=== PATIENT | male | born 1970 | race Caucasian/White ===

== ENCOUNTER 2017-08-17 09:45 | Observation (INO) | payer BC, OTHER ==
[2017-09-03] MEDS ORDERED: LR 1,000 ML IV ONE (05:49)
[2017-09-03] MEDS ORDERED: ACETAMINOPHEN 500 MG TAB PO ONE (05:49)
[2017-09-03] MEDS ORDERED: ceFAZolin 2 GM/SWFI 2 GM/20 ML SYR IVP ONE (05:49)
[2017-09-03] MEDS ORDERED: LIDOCAINE 1% 2 ML INJ ID PRN (05:49)
[2017-09-03] MEDS ORDERED: GABAPENTIN 300 MG CAP PO ONE (05:49)
[2017-09-03] MEDS ORDERED: MIDAZOLAM 2 MG/2 ML VIAL IVP ONE (06:46)
--- NOTE | 2017-09-03 06:52 | PDANEPAE ---
ANE History of Present Illness 47 yo male with cervical DDD, B upper extremity numbness/some weakness for C5-7 ACDF. ANE Past Medical History - Cardiovascular History Hx Hypertension: No Hx Arrhythmias: No Hx Chest Pain: No Hx Coronary Artery / Peripheral Vascular Disease: No Hx CHF / Valvular Disease: No Hx Palpitations: No Cardiovascular History Comment: hypercholesterolemia - no off meds - Pulmonary History Hx COPD: No Hx Asthma/Reactive Airway Disease: No Hx Recent Upper Respiratory Infection: No Hx Oxygen in Use at Home: No Hx Sleep Apnea: Yes Sleep Apnea Screening Result - Last Documented: Positive Pulmonary History Comment: isabella positive- uses cpap- instructed pt to bring to hospital. recent bronchitis - Neurologic History Hx Cerebrovascular Accident: No Hx Seizures: No Hx Dementia: No Neurologic History Comment: numbness and tingling to bilateral hands - Endocrine History Hx Diabetes: No Hypothyroid: No Obesity: mild - Renal History Hx Renal Disorders: No - Liver History Hx Hepatic Disorders: No - Neurological & Psychiatric Hx Hx Neurological and Psychiatric Disorders: Yes Neurological / Psychiatric History Comment: depression/anxiety - Cancer History Hx Cancer: No - Congenital Disorder History Hx Congenital Disorders: No - GI History Hx Gastrointestinal Disorders: No - Other Health History Other Health History: none - Chronic Pain History Chronic Pain: Yes (neck and thoracic area) - Surgical History Prior Surgeries: hernia repair x4 ANE Review of Systems Review of systems is: negative Review of Systems: - Exercise capacity METS (RN): 4 METS ANE Patient History - Allergies Allergies/Adverse Reactions: No Known Allergies Allergy (Verified 07/21/17 11:40) - Home Medications Home Medications: ALPRAZolam [Alprazolam] 0.25 mg PO BID 09/02/17 [Last Taken 09/01/17 06:00] Allopurinol [Allopurinol 300 MG (RX)] 300 mg PO DAILY 09/02/17 [Last Taken 09/02 20:00] Cetirizine HCl [Zyrtec] 10 mg PO DAILY PRN 09/02/17 [Last Taken 09/02/17 07:00] Citalopram Hydrobromide [Citalopram HBr] 40 mg PO DAILY 09/02/17 [Last Taken 21:00] HYDROcodone BITARTRATE [Zohydro ER] 30 mg PO BID 09/02/17 [Last Taken 09/03/17 03:30] Hydrocodone/Acetaminophen [Hydrocodon-Acetaminophn 10325] 1 each PO 5XD PRN [Last Taken 09/03/17 03:30] - NPO status NPO Since - Liquids (Date): 09/02/17 NPO Since - Liquids (Time): 20:00 NPO Since - Solids (Date): 09/02/17 NPO Since - Solids (Time): 19:30 - Anes Hx Anes Hx: no prior problems - Smoking Hx Smoking Status: Never smoked Marijuana use: No - Alcohol Use Alcohol Use: Rarely - Family Anes Hx Family Anes Hx: neg - N/A Family Hx Anesthesia Complications: none ANE Labs/Vital Signs - Vital Signs Blood Pressure: 161/88 Heart Rate: 73 Respiratory Rate: 18 O2 Sat (%): 91 Height: 172.72 cm Weight: 102.058 kg ANE Physical Exam - Airway Neck exam: decreased ROM Mallampati Score: Class 3 Mouth exam: normal dental/mouth exam - Pulmonary Pulmonary: clear to auscultation - Cardiovascular Cardiovascular: regular rate and rhythym - ASA Status ASA Status: III ANE Anesthesia Plan Anesthesia Plan: general endotracheal anesthesia Lines/Monitors: additional IV
--- NOTE | 2017-09-03 06:53 | PDHPUP ---
History & Physical Update H&P update statement: This history and physical update is based on an assessment of the patient which was completed after admission or registration (within 24 hours), but prior to the surgery/procedure. H&P update: H&P reviewed & patient examined, no change in patient's condition since H&P completed (Consents signed and site marked. All questions answered.)
[2017-09-03] MEDS ORDERED: DEXMEDETOMIDINE HCL 400 MCG in NS 100 ML IV SCH (07:00)
[2017-09-03] MEDS ORDERED: PROPOFOL 200 MG/20 ML VIAL ONE ×2 (07:09→07:59)
[2017-09-03] MEDS ORDERED: LIDOCAINE 2% 5 ML SDV ONE (07:09)
[2017-09-03] MEDS ORDERED: ROCURONIUM 50 MG/5 ML VIAL ONE (07:09)
[2017-09-03] MEDS ORDERED: DEXAMETHASONE 4 MG/ML VIAL ONE (07:09)
[2017-09-03] MEDS ORDERED: THROMBIN (BOVINE) 20,000 UNIT VIAL TP ONE (07:14)
[2017-09-03] MEDS ORDERED: BACITRACIN 50,000 UNITS/10 ML SYR IRR ONE (07:15)
[2017-09-03] MEDS ORDERED: SURGIFLO MATRIX KIT WITH THROMBIN 8 ML TP ONE (07:17)
[2017-09-03] MEDS ORDERED: CHLORHEXIDINE GLUC HIBICLENS 118 ML BTL TP ONE (07:17)
[2017-09-03] MEDS ORDERED: DIAZEPAM 5 MG/ML 1 ML SYR ONE ×2 (08:01→10:03)
[2017-09-03] MEDS ORDERED: epHEDrine SULFATE 10 MG/ML SYR ONE (08:25)
[2017-09-03] MEDS ORDERED: ONDANSETRON 4 MG/2 ML VIAL ONE (09:22)
[2017-09-03] MEDS ORDERED: ALBUTEROL 3 ML DEYVIAL IH PRN (09:22)
[2017-09-03] MEDS ORDERED: NALOXONE HCL 0.4 MG/ML INJ IVP PRN (09:22)
[2017-09-03] MEDS ORDERED: LR 500 ML IV PRN (09:22)
[2017-09-03] MEDS ORDERED: ONDANSETRON 4 MG/2 ML VIAL IVP PRN (09:41)
[2017-09-03] MEDS ORDERED: BISACODYL 10 MG SUPP PR PRN (09:41)
[2017-09-03] MEDS ORDERED: ONDANSETRON DISINTEGRATING 4 MG TAB PO PRN (09:41)
[2017-09-03] MEDS ORDERED: LACTULOSE 20 GM/30 ML UDCUP PO PRN (09:41)
[2017-09-03] MEDS ORDERED: diphenhydrAMINE 25 MG CAP PO PRN (09:41)
[2017-09-03] MEDS ORDERED: MAGNESIUM HYDROXIDE 30 ML UDCUP PO PRN (09:41)
[2017-09-03] MEDS ORDERED: POLYETHYLENE GLYCOL 3350 17 GM PKT PO PRN (09:41)
[2017-09-03] MEDS ORDERED: NS W/ 20 KCl/L 1,000 ML IV SCH (09:45)
--- NOTE | 2017-09-03 09:46 | POSTANESTH ---
Post Anesthetic Evaluation Cardiovascular Status: Normal, Stable Respiratory Status: Requires Airway Assist Level of Consciousness/Mental Status: Unconscious Pain Control: Adequate, Prn Tx Ordered Nausea/Vomiting Control: Adequate, Prn Tx Ordered Complications Possibly Related to Anesthesia: None Noted
[2017-09-03] MEDS ORDERED: CETIRIZINE 10 MG TAB PO PRN (09:48)
[2017-09-03] MEDS ORDERED: oxyCODONE IR 5 MG TAB ONE ×2 (10:02→10:40)
[2017-09-03] MEDS: oxyCODONE IR 5 MG TAB PO PRN ×3 (10:07→15:25)
[2017-09-03] MEDS: DIAZEPAM 5 MG/ML 1 ML SYR IVP PRN ×2 (10:19→11:00)
--- NOTE | 2017-09-03 10:29 | POSTOPPROG ---
Post Op Note Date of Operation: 09/03/17 Surgeon: Namrata Parker Trainmaster: KEYONNA Parker Anesthesia: GET(General Endotracheal) Pre-op Diagnosis: Cervical stenosis Post-op Diagnosis: Cervical stenosis Indication: Cervical stenosis, failure of medical management Procedure: ACDF C5-7 Inf/Abcess present in the surg proc area at time of surgery?: No EBL: Minimal Drains: Carlos MCDONALD Addendum - Addendum .: S: Neck pain O: NAD A&Ox3 MAEx4 5/5 and equal in BUE and BLE. Neck soft, supple no edema A/P 47y/o male s/p C5-7 ACDF -Post op xrays pending -PT/OT -Optmize pain management -Advance diet as tolerate -DVT prophx: TEDs, SCD, Lovenox POD3 -OMARI x1 -please notify NS with any change in neuro/motor exam
--- NOTE | 2017-09-03 12:51 | GOP ---
[f rep st] OPERATIVE REPORT DATE OF OPERATION: 09/03/2017 SURGEON: Matthew Gage MD NEUROSURGEON: Matthew Gage MD SMASHER: Namrata Parker PA-C. ANESTHESIA: General. PREOPERATIVE DIAGNOSIS: 1. C5-C6 and C6-C7 cervical spondylosis. 2. Cervicalgia and upper extremity numbness. 3. Treatment refractory to nonoperative intervention. POSTOPERATIVE DIAGNOSIS: 1. C5-C6 and C6-C7 cervical spondylosis. 2. Cervicalgia and upper extremity numbness. 3. Treatment refractory to nonoperative intervention. PROCEDURE PERFORMED: 1. Anterior arthrodesis with approach to C5, C6, and C7. 2. C5-C6 diskectomy with bilateral foraminotomies, osteophytectomies, and interbody fusion, using a 7 mm titanium-coated PEEK cage filled with morselized autograft and allograft. 3. C6-C7 diskectomy with bilateral foraminotomies, osteophytectomies, and interbody fusion, using a 7 mm titanium-coated PEEK cage filled with morselized autograft and allograft. 4. Anterior cervical fusion C5-C6-C7 with a Culture Kitchentronic Lemay translational plate. 5. Use of intraoperative fluoroscopy, less than 1 hour physician time. 6. Use of neuromonitoring. 7. Use of operative microscope. FINDINGS: per imaging COMPLICATIONS: None. SPECIMENS: None. ESTIMATED BLOOD LOSS: 30 mL. INDICATIONS: The patient is a 47-year-old gentleman who unfortunately has been suffering from a long-standing history of neck pain and bilateral upper extremity numbness. Imaging studies demonstrated spondylosis C5, C6, and C7. After discussion of the risks, benefits, and treatment alternatives, we decided to proceed forth with surgery as described above. The patient also noted that he was going to discontinue his tobacco use at the time of surgery, but actually did not do so at the time of his surgical presentation as promised. We discussed with him extensively that he had promised that he would quit, and that this increases the risk of pseudoarthrosis. We decided to proceed forth given failed nonoperative management. He understood the increased risk of proceeding forth despite his continuing nicotine use. DESCRIPTION OF PROCEDURE: The patient was brought to the operating theater and underwent general endotracheal anesthesia without complications. Venodyne's, JOSÉ ANTONIO hose, and the appropriate lines were placed by Anesthesia. He was maintained supine on the operating table with his head placed in slight extension. Using lateral fluoroscopy and a spinal needle, we picked our entry point to the C5,C6, and C7 levels. This was somewhat difficult to visualize secondary to the patient's body habitus. We marked this as a transverse incision on the right side of his neck. This area was then prepped and draped in the usual sterile surgical fashion. A time-out was completed per protocol, and the patient had received antibiotics within 1 hour of incision. The incision was taken down with the scalpel blade and then, using monopolar, taken down through the subcutaneous tissues to the level of the platysma. The platysma was over-mined in the cranial and caudal directions. A Weitlaner was placed to maintain our exposure. We opened the fibers of the platysma cranially and caudally. Using blunt and sharp dissection, we traveled in a plane medial to the carotid sheath and lateral to the esophagus and trachea to reach the prevertebral fascia. We placed a bayonetted needle into the disk space of C5-C6 and confirmed our level using lateral fluoroscopy. We elevated the longus coli muscle from the anterior vertebral bodies of C5, C6, and C7. Deep retractors were placed to maintain our exposure. We again confirmed our level using lateral fluoroscopy. The microscope was brought into the field to assist with microscopic dissection and to maintain illumination and magnification. We placed a [place] pin into the vertebral body of C5 and C6 and placed C5 and C6 into mild distraction. We completed a C5-C6 diskectomy with bilateral foraminotomies and osteophytectomies. We prepared cartilagenous endplates and measured the interbody space. We then placed a 7 mm titanium-coated PEEK cage filled with morselized autograft and allograft into the C5-C6 disk space. WE removed the Rantoul pin from C5 and placed it into C7, and placed C6-C7 into mild distraction. We completed a C6-C7 diskectomy with bilateral foraminotomies and osteophytectomies. We prepared the cartilagenous endplates and measured interbody space. We placed a 7 mm titanium-coated PEEK cage filled with morselized autograft and allograft into the C6-C7 disk spaces. We removed the Rantoul pins and drilled down the anterior osteophytes and secured a 37.5 mm Culture Kitchentronic Lemay translational plate onto the vertebral bodies of C5, C6, and C7. AP and lateral x-rays demonstrated good placement of the hardware. The wound was irrigated copiously with bacitracin irrigation. A drain was left in the subfascial space, and the wound was closed in multiple layers using Vicryl sutures for the deep layers and Dermabond for the skin. The patient's wounds were dressed sterilely. He was then awakened, extubated, and taken to the recovery room in stable condition. There were no complications and no noted changes on neuromonitoring throughout the procedure. COMPLICATIONS: None. /[id number]/MODL MTDD
[2017-09-03] MEDS: HYDROCODONE/APAP 10/325 TAB PO PRN ×2 (13:44→19:36)
[2017-09-03] MEDS: ceFAZolin 2 GM/SWFI 2 GM/20 ML SYR IVP SCH ×2 (13:45→20:52)
[2017-09-03] MEDS ORDERED: DEXAMETHASONE 4 MG/ML VIAL IVP ONE (14:00)
[2017-09-03] MEDS ORDERED: ceFAZolin 2 GM/DEXTROSE 100 ML IV SCH (14:00)
[2017-09-03] MEDS: CYCLOBENZAPRINE 10 MG TAB PO SCH ×2 (15:24→20:35)
[2017-09-03] MEDS: FAMOTIDINE 20 MG TAB PO SCH (20:35)
[2017-09-03] MEDS: oxyCODONE CR 30 MG TAB PO SCH (20:35)
[2017-09-03] MEDS: ALPRAZolam 0.25 MG TAB PO SCH (20:35)
[2017-09-03] MEDS: SENNOSIDES/DOCUSATE SODIUM TAB PO SCH (20:46)
[2017-09-03] MEDS ORDERED: HYDROCODONE BITARTRATE 30 MG PO SCH (21:00)
[2017-09-04] MEDS: oxyCODONE IR 5 MG TAB PO PRN (05:22)
--- NOTE | 2017-09-04 07:26 | SOAPPROG ---
SOAP Progress Note Assessment/Plan: Assessment: 47 yo M POD #1 C5-7 ACDF Plan: stable and doing well overall :) PT/OT remove OMARI x-rays of c-spine pending scd/jevon for dvt prophylaxis dc home today after x-rays please call with neuro changes discussed with Dr Paige 09/04/17 07:24 Subjective: + neck pain, no arm pain, no weakness. Objective: Vital Signs Temp Pulse Resp BP Pulse Ox 36.4 C 94 18 132/81 H 93 09/04/17 04:00 09/04/17 04:00 09/04/17 04:00 09/04/17 04:00 09/04/17 04:00 09/03/17 09/04/17 09/05/17 05:59 05:59 05:59 Intake Total 2375 Output Total 1455 5 Balance 920 -5 AAOx4, +FC PERRL, EOMI 5/5 + light touch C/D/I ICD10 Worksheet Patient Problems: Problems Problem Status Onset Fusion of spine of cervical region Acute - ICD10 Problem Qualifiers (1) Fusion of spine of cervical region
[2017-09-04] MEDS: FAMOTIDINE 20 MG TAB PO SCH (08:01)
[2017-09-04] MEDS: ALPRAZolam 0.25 MG TAB PO SCH (08:50)
[2017-09-04] MEDS: oxyCODONE CR 30 MG TAB PO SCH (08:50)
[2017-09-04] MEDS: SENNOSIDES/DOCUSATE SODIUM TAB PO SCH (08:50)
[2017-09-04] MEDS: CYCLOBENZAPRINE 10 MG TAB PO SCH (08:50)
[2017-09-04] MEDS ORDERED: CITALOPRAM 20 MG TAB PO SCH (09:00)
[2017-09-04] MEDS ORDERED: ALLOPURINOL 300 MG TAB PO SCH (09:00)
[2017-09-04] MEDS ORDERED: NON-FORMULARY NEW DRUG (Citalopram Hydrobromide [Citalopram Hbr] 40 MG) PO SCH (09:00)
[2017-09-04 11:28] VITALS: BP 132/83
[2017-09-04] MEDS: HYDROCODONE/APAP 10/325 TAB PO PRN (11:36)
[2017-09-06] MEDS ORDERED: ENOXAPARIN 40 MG/0.4 ML SYR SC SCH (09:00)
== END 2017-09-04 12:53 | disposition home or self-care (01) ==
LOC: F3N 09-03 05:27
PROVIDERS: ADMIT Neurological Surgery; ATTEND Neurological Surgery
PROC: 0RT30ZZ Resection of Cervical Vertebral Disc, Open Approach (ICD-10-PCS; principal; 2017-09-03 07:15)
PROC: BR101ZZ Fluoroscopy of Cervical Spine using Low Osmolar Contrast (ICD-10-PCS; principal; 2017-09-03 07:15)
PROC: 8E0WXBZ Computer Assisted Procedure of Trunk Region (ICD-10-PCS; principal; 2017-09-03 07:15)
PROC: 0RG20A0 Fusion of 2 or more Cervical Vertebral Joints with Interbody Fusion Device, Anterior Approach, Anterior Column, Open Approach (ICD-10-PCS; principal; 2017-09-03 07:15)
PROC: 0RB10ZZ Excision of Cervical Vertebral Joint, Open Approach (ICD-10-PCS; principal; 2017-09-03 07:15)
DX: M47.22 Other spondylosis with radiculopathy, cervical region (principal); M54.2 Cervicalgia; F32.9 Major depressive disorder, single episode, unspecified; E78.5 Hyperlipidemia, unspecified; M10.9 Gout, unspecified; G89.29 Other chronic pain
CPT/HCPCS: 22551; 22552; 72040; 76001; G0378; C1713; J0690; J1100; J2250; J2270; J2405; J2704; J3360

== ENCOUNTER → 2017-10-12 | Outpatient (CLI) | payer BC | LOC: FIMAGING 16:02 | PROVIDERS: ATTEND Physician Assistant | DX: Z98.1 Arthrodesis status (principal) ==

== ENCOUNTER → 2017-11-23 | Outpatient (CLI) | payer BC | LOC: FIMAGING 14:15 | PROVIDERS: ATTEND Physician Assistant | DX: M54.2 Cervicalgia (principal); M47.22 Other spondylosis with radiculopathy, cervical region ==

== ENCOUNTER → 2018-03-07 | Outpatient (CLI) | payer BC | LOC: FIMAGING 13:44 | PROVIDERS: ATTEND Neurological Surgery | DX: Z98.1 Arthrodesis status (principal) ==

== ENCOUNTER → 2018-05-26 | Outpatient (CLI) | payer BC | LOC: FIMAGING 14:11 | PROVIDERS: ATTEND Physician Assistant | DX: M50.321 Other cervical disc degeneration at C4-C5 level (principal); F17.220 Nicotine dependence, chewing tobacco, uncomplicated; Z98.1 Arthrodesis status ==